=== PATIENT | female | born 1995 | race Caucasian/White ===

== ENCOUNTER → 2016-03-24 | Outpatient (CLI) | payer BC ==
[~2016-03-24] MED LIST: ALBU18002 INH; ALBU1AER9 INH; BCPILLS PO; FLUO20CA35 PO
[2016-03-28 13:20] LABS: HERPES SIMPLEX AB IGG-1 0.02; HERPES SIMPLEX AB IGG-2 0.07
== END | disposition home or self-care (01) ==
LOC: C.LAB 11:30
PROVIDERS: ATTEND Pediatrics
DX: N76.5 Ulceration of vagina (principal)

== ENCOUNTER 2016-09-30 08:58 | Emergency (ER) | payer OTHER, BC ==
[~2016-09-30] VITALS: Ht 170.2 cm; Wt 100.4 kg
[~2016-09-30 08:58] MED LIST changes: -ALBU18002 INH; -BCPILLS PO; -FLUO20CA35 PO
[2016-09-30 09:05] VITALS: TEMP 36.7; Ht 170.2 cm; Wt 100.4 kg
[2016-09-30] MEDS ORDERED: FLUO20CA35 PO (09:23)
[2016-09-30] MEDS ORDERED: BCPILLS PO (09:23)
[2016-09-30] MEDS ORDERED: ALBU18002 INH (09:23)
[2016-09-30] MEDS ORDERED: OPTIRAY 320 IV PRN (10:00)
[2016-09-30 10:31] LABS: BASO % 0.7 %; BASO ABS # 0.04 K/uL (0-0.2); COMPLETE YES; EOS % 2.4 %; HEMATOCRIT 46.2 % (37-47); LYMPH % 29.8 %; LYMPH ABS # 1.71 K/uL (1.2-3.4); MEAN CORPUSCULAR HEMOGLOBIN 27.8 pg (25-34); MEAN CORPUSCULAR HGB CONC 33.1 g/dl (32-36); MEAN PLATELET VOLUME 9.6 fL (7.4-10.4); MONO % 9.6 %; NEUT % 57.5 %; PLATELET COUNT 318 K/uL (130-400); WHITE BLOOD COUNT 5.73 K/uL (4.8-10.8)
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
[2016-09-30 10:53] LABS: ALKALINE PHOSPHATASE 70 U/L (45-117); ALT/SGPT 29 U/L (12-78); AST/SGOT 29 U/L (15-37); BLOOD UREA NITROGEN 4 mg/dl (7-18); BUN/CREATININE RATIO 5.3 (10-20); CARBON DIOXIDE 26 mmol/L (21-32); CHLORIDE 108 mmol/L (98-107); CREATININE 0.81 mg/dl (0.60-1.20); GLUCOSE 102 mg/dl (70-99); POTASSIUM 3.9 mmol/L (3.5-5.1); SODIUM 141 mmol/L (136-145)
[2016-09-30 11:18] LABS: PREG INTERNAL NEGATIVE QC NEG CLEAR BACKGROUND; PREG INTERNAL POSITIVE QC POS CONTROL LINE
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
[2016-09-30 12:18] VITALS: BP 127/77; PULSE 80; O2SAT 98
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
== END 2016-09-30 12:23 | disposition home or self-care (01) ==
LOC: EDBD 08:58 → C.EDB 08:59
DX: R10.11 Right upper quadrant pain (principal); S49.92XA Unspecified injury of left shoulder and upper arm, initial encounter; S89.92XA Unspecified injury of left lower leg, initial encounter; S09.90XA Unspecified injury of head, initial encounter; V43.52XA Car driver injured in collision with other type car in traffic accident, initial encounter; Y93.89 Activity, other specified; Y99.8 Other external cause status; F17.200 Nicotine dependence, unspecified, uncomplicated; Z87.01 Personal history of pneumonia (recurrent); Z81.8 Family history of other mental and behavioral disorders

== ENCOUNTER → 2016-10-24 | Outpatient (CLI) | payer BC ==
[~2016-10-24] MED LIST changes: +ALBU18002 INH; -ALBU1AER9 INH; +BCPILLS PO; +FLUO20CA35 PO
[2016-10-27 02:58] LABS: CHLAMYDIA TRACH RNA*** NOT DETECTED (NOT DETECTED); GC (NEIS GONORRHOEAE)RNA** NOT DETECTED (NOT DETECTED)
== END | disposition home or self-care (01) ==
LOC: C.LABSPEC 13:27
PROVIDERS: ATTEND Obstetrics & Gynecology
DX: Z01.419 Encounter for gynecological examination (general) (routine) without abnormal findings (principal)